=== PATIENT | female | born 1960 | race Caucasian/White ===

== ENCOUNTER 2020-06-24 09:12 | Emergency (ER) | payer OTHER ==
[~2020-06-24] VITALS: Ht 170.2 cm; Wt 61.2 kg
[~2020-06-24 09:12] MED LIST: ACETAMINOPHEN-1 EAC1 PO; NICOTINE TRANSD21 M1; PRILOSEC 20 MG20 MG PO; ZPAK PO
[2020-06-24 09:21] VITALS: BP 125/83
[2020-06-24] MEDS ORDERED: PERCOCET 5-3251 EACH PO (09:55)
== END 2020-06-24 10:09 | disposition home or self-care (01) ==
LOC: M.ERS 09:12
DX: S63.591A Other specified sprain of right wrist, initial encounter (principal); Z88.5 Allergy status to narcotic agent; W18.39XA Other fall on same level, initial encounter; Y93.89 Activity, other specified; Y92.89 Other specified places as the place of occurrence of the external cause; Y99.8 Other external cause status

== ENCOUNTER 2020-12-31 11:06 | Emergency (ER) | payer BC ==
[~2020-12-31] VITALS: Ht 170.2 cm; Wt 59.0 kg
[~2020-12-31 11:06] MED LIST changes: +PERCOCET 5-3251 EACH PO
[2020-12-31] MEDS ORDERED: CEPHALEXIN500 MG PO (13:03)
[2020-12-31 13:53] VITALS: BP 128/66
== END 2020-12-31 13:55 | disposition home or self-care (01) ==
LOC: M.ERS 11:06
DX: S61.411A Laceration without foreign body of right hand, initial encounter (principal); Z88.5 Allergy status to narcotic agent; W26.8XXA Contact with other sharp object(s), not elsewhere classified, initial encounter; Y93.89 Activity, other specified; Y92.89 Other specified places as the place of occurrence of the external cause; Y99.8 Other external cause status